=== PATIENT | female | born 1985 | race Caucasian/White ===

== ENCOUNTER 2019-03-24 12:16 | Emergency (ER) | payer OTHER ==
[~2019-03-24] VITALS: Ht 175.3 cm; Wt 84.1 kg
[~2019-03-24 12:16] MED LIST: CEPH-443 PO; CLOT30CR24 TOP; HC30CR25 TOP
[2019-03-24 12:42] VITALS: BP 117/74; PULSE 78; RESP 17; Ht 175.3 cm; Wt 84.1 kg
== END 2019-03-24 13:27 | disposition home or self-care (01) ==
LOC: E/R 12:16
DX: L01.00 Impetigo, unspecified (principal)
CPT/HCPCS: 99283